=== PATIENT | male | born 1995 | race Caucasian/White ===

== ENCOUNTER 2016-10-14 10:08 | Emergency (ER) | payer OTHER ==
--- NOTE | ~2016-10-14 | CT4 ---
[facility] A Service of [facility] RADIOLOGY TEXT RESULTS PATIENT: MADHURI SANFORD LOCATION: [facility] : [birth year] UNIT #: [id number] AGE: [address]: Dmitry Gómez MD SEX: M ORDER DR: [id number] [facility] [address] [place], [place] [address] [id number] P MR#: [id number] Acc #: [id number] NAME: MADHURI SANFORD : 1995 SEX: M STUDY DATE/TIME: 10/14/2016 10:59 UNIT: [facility] ROOM: STUDY DESCRIPTION: CT Abd and Pelv Wo Cont Attending Physician: Dmitry Gómez M.D. Ordering Physician: Dmitry Gómez M.D. Primary Care Physician: Primary Care Physician No MEDICAL IMAGING REPORT This report is preliminary unless electronic signature is present EXAM CT abdomen and pelvis without contrast, 10/14/2016 10:59 hours HISTORY 21-year-old with complaint of left flank pain and left lower quadrant abdominal pain since 07:30 hours today. Dysuria for 2 days. COMPARISON None TECHNIQUE Helical noncontrasted images were obtained from the lung bases through the pubic symphysis. No oral or intravenous contrast was administered. Sagittal and coronal reconstructions were performed. Total exam DLP 499 mGy-cm. This CT exam was performed with one or more of the following radiation dose reduction techniques: automatic exposure control, adjustment of mA and/or kV according to patient size, and iterative reconstruction. FINDINGS Images through the lung bases are clear. There are no effusions. Images through the abdomen demonstrate a normal noncontrasted appearance of the liver, spleen, pancreas, gallbladder, bile ducts and adrenal glands. The abdominal aorta is normal. The kidneys demonstrate no definite intrarenal calculi. There is no pelvocaliectasis or ureterectasis. There is a 1.0-2.0 mm calcification seen in the posterior midline pelvis which I believe is within the bladder and most likely represents a recently passed stone. The stomach and small bowel are normal. There is some dense material within the appendix which is otherwise normal. This may be related to previous contrast STS. [facility] A Service of [facility] RADIOLOGY TEXT RESULTS PATIENT: MADHURI SANFORD LOCATION: [facility] : [birth year] UNIT #: [id number] AGE: [address]: Dmitry Gómez MD SEX: M ORDER DR: administration. No definite appendicolith. The colon is nondistended. There is no definite colonic wall thickening or inflammation. Bone window images are normal. IMPRESSION 1. There are no definite renal or ureteral calculi and no definite dilatation of the renal collecting systems, however, there is a punctate 2.0 mm calcification in the posterior midline pelvis which I believe is within the contracted bladder and could represent a recently passed stone. 2. The appendix is normal in caliber. There is some dense material within the appendix which may represent retained contrast material from previous exam or some dense medication; however, there is no inflammation to suggest appendicitis. 3. No colonic wall thickening or colonic inflammation is seen. STAT * RESULT Dictated by... Janet Domínguez M.D. THIS IS AN ELECTRONICALLY VERIFIED REPORT Janet Domínguez M.D. at 10/14/2016 2:28 PM Lizzette TD: 10/14/2016 11:22 JOB #: [id number] MEDICAL IMAGING REPORT Page 1 of 1 COPY
[2016-10-14 10:41] LABS: URINE SOURCE CLEAN CATCH
[2016-10-14 10:46] LABS: BASOPHIL# 0.1 X10e3 (0-0.3); BASOPHIL% 1.1 % (0-2.5); EOSINOPHIL# 0.8 X10e3 (0-0.7); EOSINOPHIL% 13.6 % (0.0-7.0); HEMOGLOBIN 15.3 gm/dL (13.0-16.0); LYMPHOCYTE# 1.6 X10e3 (1.0-3.5); LYMPHOCYTE% 25.3 % (17.0-45.0); MEAN CELL VOLUME 89.4 FL (83-96); MEAN CORPUSCULAR HEMOGLOBIN 29.7 PG (28-34); MEAN CORPUSCULAR HGB CONC 33.3 g/dL (30-36); MEAN PLATELET VOLUME 10.3 FL (6.5-11.5); MONOCYTE# 0.6 X10e3 (0-1.0); MONOCYTE% 9.6 % (3.0-12.0); NEUTROPHIL# 3.1 X10e3 (1.5-7.1); NEUTROPHIL% 50.4 % (40-75); PLATELET COUNT 188 X10e3 (140-420); RED BLOOD COUNT 5.15 X10e (3.90-5.60); RED CELL DISTRIBUTION WIDTH 13.4 % (11.0-15.5); WHITE BLOOD COUNT 6.2 X10e3 (4.0-10.5)
[2016-10-14 10:49] LABS: DIFF IND NO
[2016-10-14 10:50] LABS: URINE APPEARANCE CLOUDY; URINE BLOOD 4+ (NEG); URINE COLOR BROWN; URINE GLUCOSE NORM (NORM); URINE KETONE NEG (NEG); URINE LEUKOCYTE ESTERASE 1+ (NEG); URINE PROTEIN 1+ (NEG); URINE SPECIFIC GRAVITY 1.025 (1.003-1.035); URINE UROBILINOGEN NORM (NORM)
[2016-10-14 10:57] LABS: URINE BILIRUBIN NEG (NEG)
[2016-10-14 11:00] LABS: URBCS1 AUWI INNUM /[HPF] (0-2)
[2016-10-14 11:03] LABS: CULTURE INDICATED? NO; URINE BACTERIA AUWI NEG (NEGATIVE); URINE NITRATE NEG (NEG); UWBCS1 AUWI 0-2 (0-5)
[2016-10-14 11:04] LABS: URINE MUCUS PRESENT
[2016-10-14 11:24] LABS: ALBUMIN SERUM 4.7 g/dL (3.5-5.0); BILIRUBIN, DIRECT 0.1 mg/dL (0.0-0.2); BILIRUBIN,TOTAL 1.1 mg/dL (0.2-2.0); BUN/CREATININE RATIO 21.11; CALCIUM SERUM 9.3 mg/dL (8.4-10.2); CREATININE SERUM 0.9 mg/dL (0.6-1.4); GLOM FILT RATE Estimated 120.8 mL/min (>60); POTASSIUM 3.5 mmol/L (3.5-5.1); PROTEIN TOTAL SERUM 7.5 g/dL (6.0-8.3)
== END 2016-10-14 11:46 | disposition home or self-care (01) ==
LOC: CED 10:08
PROVIDERS: Emergency Medicine
DX: N20.1 Calculus of ureter (principal); F17.200 Nicotine dependence, unspecified, uncomplicated
CPT/HCPCS: 36415; 74176; 80048; 80076; 81003; 83690; 85025; 96361; 96374; 96375; 99284; J1885; J2405